=== PATIENT | male | born 2000 | race Native Hawaiian/Other Pacific Islander ===

== ENCOUNTER 2023-05-08 16:08 | Emergency (ER) | payer OTHER ==
[~2023-05-08] VITALS: Ht 182.9 cm; Wt 119.8 kg
== END 2023-05-08 18:35 | disposition home or self-care (01) ==
LOC: ED 16:08
DX: U07.1 COVID-19 (principal); F17.290 Nicotine dependence, other tobacco product, uncomplicated
CPT/HCPCS: 87502; 87635; 87651; 99283; U0003